=== PATIENT | male | born 1970 | race Caucasian/White ===

== ENCOUNTER 2017-12-28 00:19 | Inpatient (IN) | payer OTHER, BC ==
[~2017-12-28] VITALS: Ht 177.8 cm; Wt 75.0 kg
[2017-12-28] VITALS (11 sets, daily range): BP systolic 138–169; BP diastolic 68–88; PULSE 86–102; RESP 16–21; TEMP 98.8–99; O2SAT 94–98
[2017-12-28] MEDS ORDERED: NOVORP2 SQ (00:36)
[2017-12-28] MEDS ORDERED: NOVONP2 SQ ×2 (00:36)
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
[2017-12-28] MEDS ORDERED: ACETAMINOPHEN 325 MG TAB PO PRN ×2 (01:45→06:00)
[2017-12-28] MEDS ORDERED: DEXT 5%-NACL 0.9% 1000 ML INJ 1,000 ML IV SCH (01:45)
[2017-12-28] MEDS ORDERED: MORPHINE SULFATE 4 MG/ML INJ IV PUSH PRN (01:45)
[2017-12-28] MEDS ORDERED: ONDANSETRON HCL 4 MG/2 ML VIAL IV PUSH PRN (06:00)
[2017-12-28] MEDS ORDERED: ENALAPRILAT 1.25 MG/ML VIAL IV PUSH PRN (06:00)
[2017-12-28] MEDS ORDERED: SODIUM CHLORIDE 0.9% FLUSH 10 ML FLUSH IV FLUSH PRN (06:00)
[2017-12-28] MEDS ORDERED: ACETAMINOPHEN/HYDROcodone 325 MG/5 MG TAB PO PRN ×2 (06:00)
[2017-12-28] MEDS ORDERED: MISCELLANEOUS NURSING INFORMATION XX SCH (06:00)
[2017-12-28] MEDS ORDERED: CHLORHEXIDINE GLUCONATE 2 % 1 PACK (2 CLOTHS) TOP PRN (06:00)
[2017-12-28] MEDS ORDERED: GLUCAGON 1 MG/ML VIAL OTHER PRN (06:00)
[2017-12-28] MEDS ORDERED: DEXTROSE 50% IN WATER 50 ML VIAL(D50) IV PUSH PRN (06:00)
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
[2017-12-28] MEDS: PANTOPRAZOLE SODIUM 40 MG VIAL IVP SCH (06:20)
[2017-12-28 06:37] LABS: AUTOMATED NEUTROPHIL # 7.2 TH/MM3 (1.8-7.7); BASOPHIL # 0.1 TH/MM3 (0-0.2); BASOPHIL % 0.9 % (0.0-2.0); EOSINOPHIL # 0.1 TH/MM3 (0-0.4); EOSINOPHIL % 0.9 % (0.0-4.0); HEMATOCRIT 41.9 % (39.0-51.0); HEMOGLOBIN 14.5 GM/DL (13.0-17.0); LYMPH % 12.6 % (9.0-44.0); LYMPHOCYTE # 1.2 TH/MM3 (1.0-4.8); MEAN CELL VOLUME 89.7 FL (80.0-100.0); MEAN CORPUSCULAR HEMOGLOBIN 31.1 PG (27.0-34.0); MEAN CORPUSCULAR HGB CONC 34.7 % (32.0-36.0); MEAN PLATELET VOLUME 8.5 FL (7.0-11.0); MONO % 10.8 % (0.0-8.0); NEUT % 74.8 % (16.0-70.0); PLATELET COUNT 322 TH/MM3 (150-450); RED BLOOD COUNT 4.67 MIL/MM3 (4.50-5.90); RED CELL DISTRIBUTION WIDTH 14.2 % (11.6-17.2); WHITE BLOOD COUNT 9.7 TH/MM3 (4.0-11.0)
[2017-12-28 07:12] LABS: BICARBONATE 25.7 MEQ/L (21.0-32.0); CALCIUM 8.7 MG/DL (8.5-10.1); CREATININE 0.96 MG/DL (0.60-1.30); TROPONIN I 0.58 NG/ML (0.02-0.05)
[2017-12-28] MEDS: DOCUSATE SODIUM 50 MG/SENNA 8.6 MG TAB PO SCH ×2 (09:00→21:00)
[2017-12-28] MEDS: INSULIN NovoLIN REGULAR SUPPLEMENTAL SCALE SQ SCH ×4 (09:24→22:07)
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
[2017-12-28] MEDS ORDERED: SODIUM CHLOR 0.9% 1000 ML INJ 1,000 ML IV SCH (16:00)
[2017-12-28] MEDS: BACITRACIN TOP OINT 15 GM TUBE TOPICAL SCH ×2 (16:00→22:11)
[2017-12-28 16:29] LABS: TROPONIN I 0.27 NG/ML (0.02-0.05)
--- NOTE | 2017-12-28 19:19 | EKG ---
Date Performed: 12/28/2017 Time Performed: 06:15:58 PTAGE: 47 years EKG: Sinus rhythm NORMAL ECG NO PREVIOUS TRACING DOCTOR: Sage Simon Interpretating Date/Time 12/28/2017 19:17:11
--- NOTE | 2017-12-28 19:45 | RADRPT ---
EXAM DATE/TIME: 12/28/2017 19:15 [facility] COMPARISON: No previous studies available for comparison. INDICATIONS : Syncope. MEDICAL HISTORY : Diabetes. Alcohol use. SURGICAL HISTORY : Pterygium left eye, 2018. ENCOUNTER: Initial ACUITY: 1 day PAIN SCORE: 0/10 LOCATION: Bilateral neck PEAK SYSTOLIC VELOCITIES (cm/sec): ICA/CCA RATIO: Right: 1.0 Left: 0.8 ICA: Right: 123.3 Left: 87.9 CCA: Right: 121.9 Left: 105.6 ECA: Right: 86.5 Left: 129.2 VERTEBRAL: Right: 95.8 antegrade Left: 72.1 antegrade Elevated flow velocities and ICA/CCA ratios have been found to correlate with increased degrees of vessel stenosis, calculated as percentage of diameter relative to a normal segment of distal ICA/CCA FINDINGS: RIGHT CAROTID: No significant stenosis is visualized. The waveforms are within normal limits. LEFT CAROTID: No significant stenosis is visualized. The waveforms are within normal limits. VERTEBRAL ARTERIES: Antegrade flow is seen in both vertebral arteries. MISCELLANEOUS: None. CONCLUSION: Negative for hemodynamically significant stenosis Jesse Hanley MD FACR on December 28, 2017 at 19:42 Board Certified Radiologist. This report was verified electronically.
[2017-12-28] MEDS ORDERED: INSULIN HUMAN NPH 1,000 UNITS/10 ML VIAL SQ SCH (21:00)
[2017-12-28] MEDS ORDERED: OCUF0.3D LEFT EYE (22:19)
[2017-12-28] MEDS ORDERED: PRED1SUS LEFT EYE (22:19)
[2017-12-29] VITALS (10 sets, daily range): BP systolic 136–149; BP diastolic 79–85; PULSE 81–88; RESP 16–18; TEMP 98.8; O2SAT 96–97
[2017-12-29] MEDS ORDERED: CHLORHEXIDINE GLUCONATE 2 % 1 PACK (2 CLOTHS) TOP SCH (04:00)
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
[2017-12-29 05:20] LABS: BASOPHIL # 0.1 TH/MM3 (0-0.2); BASOPHIL % 1.3 % (0.0-2.0); EOSINOPHIL # 0.2 TH/MM3 (0-0.4); EOSINOPHIL % 1.6 % (0.0-4.0); HEMATOCRIT 41.3 % (39.0-51.0); LYMPH % 23.2 % (9.0-44.0); LYMPHOCYTE # 2.2 TH/MM3 (1.0-4.8); MEAN CELL VOLUME 89.1 FL (80.0-100.0); MEAN CORPUSCULAR HEMOGLOBIN 30.2 PG (27.0-34.0); MEAN CORPUSCULAR HGB CONC 33.9 % (32.0-36.0); MEAN PLATELET VOLUME 8.2 FL (7.0-11.0); MONO % 10.1 % (0.0-8.0); MONOCYTE # 0.9 TH/MM3 (0-0.9); NEUT % 63.8 % (16.0-70.0); PLATELET COUNT 280 TH/MM3 (150-450); RED BLOOD COUNT 4.63 MIL/MM3 (4.50-5.90); RED CELL DISTRIBUTION WIDTH 13.8 % (11.6-17.2); WHITE BLOOD COUNT 9.4 TH/MM3 (4.0-11.0)
[2017-12-29 05:43] LABS: ALBUMIN 3.2 GM/DL (3.4-5.0); ALKALINE PHOSPHATASE 75 U/L (45-117); ALT (GPT) 22 U/L (12-78); AST (GOT) 47 U/L (15-37); BICARBONATE 30.4 MEQ/L (21.0-32.0); BLOOD UREA NITROGEN 15 MG/DL (7-18); CALCIUM 8.6 MG/DL (8.5-10.1); CHLORIDE 105 MEQ/L (98-107); CREATININE 0.78 MG/DL (0.60-1.30); GLOMERULAR FILTRATION RATE 108 ML/MIN (>89); GLUCOSE,RANDOM 126 MG/DL (74-106); SODIUM (NA) 141 MEQ/L (136-145); TOTAL BILIRUBIN ADULT 0.6 MG/DL (0.2-1.0); TOTAL PROTEIN 6.6 GM/DL (6.4-8.2)
[2017-12-29] MEDS: PANTOPRAZOLE SODIUM 40 MG VIAL IVP SCH (05:58)
[2017-12-29 07:27] LABS: TROPONIN I 0.14 NG/ML (0.02-0.05)
[2017-12-29] MEDS: INSULIN NovoLIN REGULAR SUPPLEMENTAL SCALE SQ SCH ×2 (08:00→12:09)
[2017-12-29] MEDS: BACITRACIN TOP OINT 15 GM TUBE TOPICAL SCH (09:00)
[2017-12-29] MEDS ORDERED: INSULIN HUMAN NPH 1,000 UNITS/10 ML VIAL SQ SCH (09:00)
[2017-12-29] MEDS ORDERED: prednisoLONE ACETATE 1% OPHT SUSP 5 ML BTL LEFT EYE SCH (09:00)
[2017-12-29] MEDS: DOCUSATE SODIUM 50 MG/SENNA 8.6 MG TAB PO SCH (09:00)
[2017-12-29] MEDS ORDERED: MAGNESIUM HYDROXIDE SUSP 30 ML CUP PO SCH (09:00)
[2017-12-29] MEDS ORDERED: OFLOXACIN 0.3% OPTH SOLN 5 ML BTL LEFT EYE SCH (09:00)
--- NOTE | 2017-12-29 09:11 | HHI.PR ---
Subjective Subjective Notes PTD: 2 Objective Vitals/I&O Vital Signs Date Time Temp Pulse Resp B/P (MAP) Pulse Ox O2 Delivery O2 Flow Rate FiO2 12/29/17 08:21 98.8 86 18 149/85 (106) 97 12/28/17 11:04 Room Air Labs Laboratory Tests Test 12/28/17 15:33 12/29/17 04:23 Total Creatine Kinase 1918 1725 Creatine Kinase MB 4.6 2.2 Creatine Kinase MB % 0.2 0.1 Troponin I 0.27 0.14 White Blood Count 9.4 Red Blood Count 4.63 Hemoglobin 14.0 Hematocrit 41.3 Mean Corpuscular Volume 89.1 Mean Corpuscular Hemoglobin 30.2 Mean Corpuscular Hemoglobin Concent 33.9 Red Cell Distribution Width 13.8 Platelet Count 280 Mean Platelet Volume 8.2 Neutrophils (%) (Auto) 63.8 Lymphocytes (%) (Auto) 23.2 Monocytes (%) (Auto) 10.1 Eosinophils (%) (Auto) 1.6 Basophils (%) (Auto) 1.3 Neutrophils # (Auto) 6.0 Lymphocytes # (Auto) 2.2 Monocytes # (Auto) 0.9 Eosinophils # (Auto) 0.2 Basophils # (Auto) 0.1 CBC Comment DIFF FINAL Differential Comment Blood Urea Nitrogen 15 Creatinine 0.78 Random Glucose 126 Total Protein 6.6 Albumin 3.2 Calcium Level 8.6 Alkaline Phosphatase 75 Aspartate Amino Transf (AST/SGOT) 47 Alanine Aminotransferase (ALT/SGPT) 22 Total Bilirubin 0.6 Sodium Level 141 Potassium Level 3.6 Chloride Level 105 Carbon Dioxide Level 30.4 Anion Gap 6 Estimat Glomerular Filtration Rate 108 Jesika Barney Dec 29, 2017 09:11
[2017-12-29] MEDS ORDERED: REGADENOSON INJ 0.4 MG/5 ML SYR ONE (09:49)
--- NOTE | 2017-12-29 11:19 | RADRPT ---
EXAM DATE/TIME: 12/29/2017 09:27 [facility] COMPARISON: No previous studies available for comparison. INDICATIONS : Chest pain. Unable to walk on treadmill. DOSE: 25.5 mCi Tc99m Myoview at stress. 8.7 mCi Tc99m Myoview at rest. 0.4 mg Lexiscan STRESS SYMPTOMS: Shortness of breath. EJECTION FRACTION: 68% MEDICAL HISTORY : Diabetes mellitus type 1. SURGICAL HISTORY : Skin grafts. ENCOUNTER: Initial ACUITY: 1 day PAIN SCALE: 4/10 LOCATION: chest TECHNIQUE: The patient underwent pharmacologic stress with infusion of prescribed dose. Continuous ECG tracing was monitored during stress. Gated SPECT imaging was performed after stress and conventional SPECT i maging was performed at rest. The examination was performed on a SPECT/CT scanner, both attenuation and non-corrected datasets were reviewed. FINDINGS: DISTRIBUTION: The maximum perfused segment at stress is in the lateral wall. PERFUSION STUDY: The pattern of perfusion at stress is within normal limits. GATED STUDY: There is intact wall motion and thickening without hypokinetic or dyskinetic segments. CONCLUSION: No evidence of infarct, ischemia or wall motion abnormality. RISK CATEGORY: Low risk (Less than 1% annual mortality rate). Felix Benjamin MD on December 29, 2017 at 11:15 Board Certified Radiologist. This report was verified electronically.
--- NOTE | 2017-12-29 11:49 | PD.CARD.PN ---
Subjective Subjective Remarks Pt feels well, wants to go home. Objective Medications Current Medications Medications (Trade) Dose Ordered Sig/Yang Route Start Time Stop Time Status Last Admin (Morphine Inj) 4 mg Q3H PRN IV PUSH 12/28/17 01:45 (NS Flush) 2 ml UNSCH PRN IV FLUSH 12/28/17 06:00 ([place] 5-325 Mg) 1 tab Q4H PRN PO 12/28/17 06:00 ([place] 5-325 Mg) 2 tab Q4H PRN PO 12/28/17 06:00 (Tylenol) 650 mg Q6H PRN PO 12/28/17 06:00 (Vasotec Inj) 1.25 mg Q8H PRN IV PUSH 12/28/17 06:00 (Zofran Inj) 4 mg Q6H PRN IV PUSH 12/28/17 06:00 (Protonix Inj) 40 mg Q24H IVP 12/28/17 06:00 12/29/17 05:58 Miscellaneous Information 1 Q361D XX 12/28/17 06:00 (Chlorhexidine 2% Cloth) 3 pack Taper DAILY@04 TOP 12/29/17 04:00 12/25/18 03:59 (Chlorhexidine 2% Cloth) 3 pack UNSCH PRN TOP 12/28/17 06:00 (Sarah-Colace) 1 tab BID PO 12/28/17 09:00 (D50w (Vial) Inj) 50 ml UNSCH PRN IV PUSH 12/28/17 06:00 (Glucagon Inj) 1 mg UNSCH PRN OTHER 12/28/17 06:00 (NovoLIN N INJ) 12 units DAILY SQ 12/29/17 09:00 (NovoLIN N INJ) 15 units HS SQ 12/28/17 21:00 12/28/17 21:00 (NovoLIN R SUPPLEMENTAL SCALE) 1 ACHS SLIDING SCALE SQ 12/28/17 17:00 12/28/17 22:07 (Baciguent Oint) 1 applic Q12HR TOPICAL 12/28/17 16:00 12/28/17 22:11 Sodium Chloride 1,000 ml @ 42 mls/hr [id number] IV 12/28/17 16:00 12/28/17 16:00 (Ocuflox 0.3% Opth Soln) 1 drop QID LEFT EYE 12/29/17 09:00 (Pred Forte 1% Opth Susp) 1 drop QID LEFT EYE 12/29/17 09:00 (Milk Of Magnsarah Liq) 30 ml BID PO 12/29/17 09:00 Vital Signs / I&O Vital Signs Date Time Temp Pulse Resp B/P (MAP) Pulse Ox O2 Delivery O2 Flow Rate FiO2 12/29/17 08:21 98.8 86 18 149/85 (106) 97 12/29/17 07:30 81 12/29/17 06:00 86 12/29/17 05:00 82 12/29/17 04:36 85 16 136/79 (98) 96 12/29/17 04:00 82 12/29/17 03:00 83 12/29/17 02:00 86 12/29/17 01:00 86 12/29/17 00:00 88 12/28/17 23:00 99 16 155/80 (105) 97 12/28/17 23:00 96 12/28/17 22:00 102 12/28/17 21:00 90 12/28/17 20:00 90 12/28/17 19:00 101 12/28/17 19:00 98.9 93 16 158/82 (107) 96 12/28/17 16:00 98.8 88 20 169/88 (115) 97 12/28/17 12:29 99.0 86 20 154/68 (96) 96 12/28/17 12:25 I/O 12/28/17 12/28/17 12/28/17 12/29/17 12/29/17 12/29/17 07:00 15:00 23:00 07:00 15:00 23:00 Intake Total 120 ml 120 ml Balance 120 ml 120 ml Intake Oral 120 ml 120 ml # Voids 1 2 # Bowel Movements 0 Physical Exam GENERAL: This is a well-nourished, well-developed patient, in no apparent distress. CARDIOVASCULAR: Regular rate and rhythm without murmurs, gallops, or rubs. RESPIRATORY: Clear to auscultation. Breath sounds equal bilaterally. No wheezes , rales, or rhonchi. GASTROINTESTINAL: Abdomen soft, non-tender, nondistended. Normal active bowel sounds MUSCULOSKELETAL: Extremities without clubbing, cyanosis, or edema. NEURO: Alert & Oriented x4 to person, place, time, situation. Moves all ext x4 Laboratory Laboratory Tests Test 12/28/17 15:33 12/29/17 04:23 Total Creatine Kinase 1918 U/L 1725 U/L Creatine Kinase MB 4.6 NG/ML 2.2 NG/ML Creatine Kinase MB % 0.2 % 0.1 % Troponin I 0.27 NG/ML 0.14 NG/ML White Blood Count 9.4 TH/MM3 Red Blood Count 4.63 MIL/MM3 Hemoglobin 14.0 GM/DL Hematocrit 41.3 % Mean Corpuscular Volume 89.1 FL Mean Corpuscular Hemoglobin 30.2 PG Mean Corpuscular Hemoglobin Concent 33.9 % Red Cell Distribution Width 13.8 % Platelet Count 280 TH/MM3 Mean Platelet Volume 8.2 FL Neutrophils (%) (Auto) 63.8 % Lymphocytes (%) (Auto) 23.2 % Monocytes (%) (Auto) 10.1 % Eosinophils (%) (Auto) 1.6 % Basophils (%) (Auto) 1.3 % Neutrophils # (Auto) 6.0 TH/MM3 Lymphocytes # (Auto) 2.2 TH/MM3 Monocytes # (Auto) 0.9 TH/MM3 Eosinophils # (Auto) 0.2 TH/MM3 Basophils # (Auto) 0.1 TH/MM3 CBC Comment DIFF FINAL Differential Comment Blood Urea Nitrogen 15 MG/DL Creatinine 0.78 MG/DL Random Glucose 126 MG/DL Total Protein 6.6 GM/DL Albumin 3.2 GM/DL Calcium Level 8.6 MG/DL Alkaline Phosphatase 75 U/L Aspartate Amino Transf (AST/SGOT) 47 U/L Alanine Aminotransferase (ALT/SGPT) 22 U/L Total Bilirubin 0.6 MG/DL Sodium Level 141 MEQ/L Potassium Level 3.6 MEQ/L Chloride Level 105 MEQ/L Carbon Dioxide Level 30.4 MEQ/L Anion Gap 6 MEQ/L Estimat Glomerular Filtration Rate 108 ML/MIN Imaging Last Impressions Chest X-Ray 12/28/17 0000 Signed Impressions: Service Date/Time: Thursday, December 28, 2017 06:01 - CONCLUSION: No acute disease. Ady Aleman MD Assessment and Plan Problem List: (1) Troponin level elevated ICD Codes: R74.8 - Abnormal levels of other serum enzymes Plan: Nonspecific, now s/p non-ischemic nuclear stress test; normal LVEF, echo prelim w/o any major pathology (formal read to follow.) Assessment and Plan Ok to d/c home from cardiac standpoint. Advised not to drive. Juvenal Vann MD Dec 29, 2017 11:49
[2017-12-29] MEDS ORDERED: PERI PO (12:46)
[2017-12-29] MEDS ORDERED: TYLE325T PO (12:46)
[2017-12-29] MEDS ORDERED: MAGN30S PO (12:46)
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
--- NOTE | 2017-12-29 13:51 | ECHRPT ---
Indication: r/o cardiac contusion CONCLUSIONS Normal left ventricular size. Wall thickness is measured at the upper limits of normal. The left ventricular systolic function is normal with an estimated ejection fraction in the range of 60-65%. Aortic valve sclerosis is present. Mild aortic valve regurgitation. BP: 166 / 75 HR: 105 Rhythm: MEASUREMENTS (Male / Female) Normal Values Technical Quality: 2D ECHO LV Diastolic Diameter PLAX 4.2 cm 4.2 - 5.9 / 3.9 - 5.3 cm LV Systolic Diameter PLAX 3.2 cm IVS Diastolic Thickness 1.2 cm 0.6 - 1.0 / 0.6 - 0.9 cm LVPW Diastolic Thickness 0.8 cm 0.6 - 1.0 / 0.6 - 0.9 cm LV Relative Wall Thickness 0.5 M-MODE Aortic Root Diameter MM 2.9 cm AV Cusp Separation MM 1.9 cm DOPPLER Mitral E Point Velocity 78.0 cm/s Mitral A Point Velocity 87.4 cm/s Mitral E to A Ratio 0.9 TR Peak Velocity 194.0 cm/s TR Peak Gradient 15.1 mmHg Right Atrial Pressure 5.0 mmHg Pulmonary Artery Systolic Pressu 20.1 mmHg Right Ventricular Systolic Press 20.1 mmHg FINDINGS LEFT VENTRICLE Normal left ventricular size. Wall thickness is measured at the upper limits of normal. The left ventricular systolic function is normal with an estimated ejection fraction in the range of 60-65%. RIGHT VENTRICLE Normal right ventricular size and systolic function. LEFT ATRIUM The left atrial size is normal. RIGHT ATRIUM The right atrial size is normal. ATRIAL SEPTUM Normal atrial septal thickness without atrial level shunting by limited color doppler interrogation. AORTA The aortic root and proximal ascending aorta are normal in size on limited imaging. MITRAL VALVE Structurally normal mitral valve. No mitral valve stenosis or regurgitation. AORTIC VALVE Aortic valve sclerosis is present. Mild aortic valve regurgitation. TRICUSPID VALVE Structurally normal tricuspid valve. No tricuspid valve stenosis or regurgitation. PULMONARY VALVE No pulmonary valve regurgitation or stenosis. VESSELS The inferior vena cava is normal in size. PERICARDIUM No pericardial effusion. Juvenal Vann MD (Electronically Signed) Final Date:29 December 2017 13:50
[2017-12-29 14:28] LABS: TROPONIN I 0.09 NG/ML (0.02-0.05)
== END 2017-12-29 14:40 | disposition home or self-care (01) | DRG 206 ==
LOC: NEPE 00:19 → NEDA 00:42 → NEDH 06:32 → HCIS 12:14
PROVIDERS: ADMIT Surgery; ATTEND Surgery
DX: S27.329A Contusion of lung, unspecified, initial encounter (principal); S26.91XA Contusion of heart, unspecified with or without hemopericardium, initial encounter; E10.649 Type 1 diabetes mellitus with hypoglycemia without coma; E10.319 Type 1 diabetes mellitus with unspecified diabetic retinopathy without macular edema; S50.12XA Contusion of left forearm, initial encounter; S01.81XA Laceration without foreign body of other part of head, initial encounter; R55 Syncope and collapse; S02.32XA Fracture of orbital floor, left side, initial encounter for closed fracture; F17.200 Nicotine dependence, unspecified, uncomplicated; R07.9 Chest pain, unspecified; R00.0 Tachycardia, unspecified; R74.8 Abnormal levels of other serum enzymes; W22.8XXA Striking against or struck by other objects, initial encounter; Y92.410 Unspecified street and highway as the place of occurrence of the external cause; V89.2XXA Person injured in unspecified motor-vehicle accident, traffic, initial encounter; Z79.4 Long term (current) use of insulin
CPT/HCPCS: 71045; 76937; 78452; 80048; 80053; 82550; 82552; 82948; 84484; 85025; 93005; 93017; 93306; 93880; A9502; C9113; J1815; J2785; J7030; J7042